=== PATIENT | male | born 1945 | race Caucasian/White ===

== ENCOUNTER 2016-12-03 11:49 | Emergency (ER) | payer MEDICARE, BC ==
[2016-12-03] MEDS ORDERED: Sodium Chloride 0.9% 10 ML Syringe FLUSH PRN (12:02)
[2016-12-03] MEDS ORDERED: Sodium Chloride 0.9% 1,000 ML IV SCH ×2 (12:15→15:00)
--- NOTE | 2016-12-03 12:37 | EDM.PDOC ---
ED HPI GENERAL MEDICAL PROBLEM - General Chief Complaint: General Stated Complaint: LIGHT HEADED Time Seen by Provider: 12/03/16 12:00 Source of Information: Reports: Patient, Family History Limitations: Reports: No Limitations - History of Present Illness INITIAL COMMENTS - FREE TEXT/NARRATIVE: c/o lighthead, dizzy, near syncope at pt had a roll and green tea for bfast, which is usual for him, went to a of a friend, in the yazidism he felt lightheaded and dizzy, felt like he would pass out, a friend helped him outside to get fresh air, felt better sitting down, brought by EMS to ED dtr here and provided hx that he had fell 2x in past month, once he leaned forward to put on his underwear and fell forward and hit his head on the floor denies CV or pul hx in past has afib on EKG, orthostatic with HR 105 supine to 120 standing with no change in BP no n/v, no cp, no sob, no f/c/d - Related Data Allergies Allergy/AdvReac Type Severity Reaction Status Date / Time No Known Allergies Allergy Verified 12/05/13 15:32 Home Meds: Home Meds Tadalafil [Cialis] 20 mg PO ASDIRECTED 12/05/13 [History] Valsartan/Hydrochlorothiazide [Valsartan-Hctz 160-12.5 mg Tab] 1.5 tab PO DAILY 12/05/13 [History] Social & Family History - Tobacco Use Smoking Status *Q: Never Smoker Second Hand Smoke Exposure: No - Caffeine Use Caffeine Use: Reports: Tea - Alcohol Use Days Per Week of Alcohol Use: 0 - Recreational Drug Use Recreational Drug Use: No ED ROS GENERAL - Review of Systems Review Of Systems: See Below Constitutional: Reports: No Symptoms HEENT: Reports: No Symptoms Respiratory: Reports: No Symptoms Cardiovascular: Reports: No Symptoms Endocrine: Reports: No Symptoms GI/Abdominal: Reports: No Symptoms : Reports: No Symptoms Musculoskeletal: Reports: No Symptoms Skin: Reports: No Symptoms Neurological: Reports: No Symptoms Psychiatric: Reports: No Symptoms Hematologic/Lymphatic: Reports: No Symptoms Immunologic: Reports: No Symptoms ED EXAM, GENERAL - Physical Exam Exam: See Below Exam Limited By: No Limitations General Appearance: Alert, WD/WN, No Apparent Distress Ears: Normal External Exam Nose: Normal Inspection, Normal Mucosa, No Blood Throat/Mouth: Normal Inspection, Normal Lips, Normal Teeth, Normal Gums, Normal Oropharynx, Normal Voice, No Airway Compromise Head: Atraumatic, Normocephalic Neck: Normal Inspection, Supple, Non-Tender, Full Range of Motion. No: Carotid Bruit, Lymphadenopathy (R) Respiratory/Chest: No Respiratory Distress, Lungs Clear, Normal Breath Sounds, No Accessory Muscle Use, Chest Non-Tender Cardiovascular: No Edema, No JVD, No Rub, Other (slight irregular, 2/6 ARIS at LSB, precordium quiet) GI/Abdominal: Normal Bowel Sounds, Soft, Non-Tender, No Organomegaly, No Distention, No Mass Back Exam: Normal Inspection, Full Range of Motion, NT Extremities: Normal Inspection, Normal Range of Motion, Non-Tender, Normal Capillary Refill, No Pedal Edema Neurological: Alert, Oriented, CN II-XII Intact, Normal Cognition, No Motor/ Sensory Deficits Psychiatric: Normal Affect, Normal Mood Skin Exam: Warm, Dry, Intact, Normal Color, No Rash Lymphatic: No Adenopathy Course - Vital Signs Last Recorded V/S: Last Vital Signs Temp 36.7 C 12/03/16 11:57 Pulse 96 12/03/16 12:56 Resp 16 12/03/16 12:56 BP 98/71 12/03/16 12:56 Pulse Ox 98 12/03/16 12:56 - Orders/Labs/Meds Orders: Active Orders 24 hr Category Date Time Status Orthostatic Vital Signs [RC] ASDIRECTED Care 12/03/16 12:00 Active Chest 2V [CR] Stat Exams 12/03/16 12:03 Taken TROPONIN I [CHEM] Stat Lab 12/03/16 12:50 Received TSH ULTRASENSITIVE [CHEM] Stat Lab 12/03/16 12:50 Received URINALYSIS W/MICROSCOPIC [UA W/MICROSCOPIC] [URIN] Stat Lab 12/03/16 12:02 Uncollected Sodium Chloride 0.9% [Normal Saline] 1,000 ml Med 12/03/16 12:15 Active IV ASDIRECTED Sodium Chloride 0.9% [Saline Flush] Med 12/03/16 12:02 Active 10 ml FLUSH ASDIRECTED PRN Saline Lock Insert [OM.PC] Routine Oth 12/03/16 12:02 Ordered EKG 12 Lead [EK] Routine Ther 12/03/16 12:01 Ordered Medication Orders Sodium Chloride (Normal Saline) 1,000 mls @ 999 mls/hr IV ASDIRECTED HAYDEE Last Admin: 12/03/16 12:43 Dose: 999 mls/hr Sodium Chloride (Saline Flush) 10 ml FLUSH ASDIRECTED PRN PRN Reason: Keep Vein Open Labs: Laboratory Tests 12/03/16 12/03/16 12/03/16 Range/Units 12:50 12:50 12:50 WBC 5.5 (4.5-12.0) X10-3/uL RBC 3.84 L (4.30-5.75) x10(6)uL Hgb 14.6 (11.5-15.5) g/dL Hct 43.3 (30.0-51.3) % MCV 112.7 H (80-96) fL MCH 37.9 H (27.7-33.6) pg MCHC 33.7 (32.2-35.4) g/dL RDW 16.9 H (11.5-15.5) % Plt Count 156 (125-369) X10(3)uL MPV 8.5 (7.4-10.4) fL Neut % (Auto) 71.9 (46-82) % Lymph % (Auto) 20.3 (13-37) % [place] % (Auto) 5.6 (4-12) % Eos % (Auto) 2 (1.0-5.0) % Baso % (Auto) 0 (0-2) % Neut # (Auto) 4.0 (1.6-8.3) # Lymph # (Auto) 1.1 (0.6-5.0) # [place] # (Auto) 0.3 (0.0-1.3) # Eos # (Auto) 0.1 (0.0-0.8) # Baso # (Auto) 0.0 (0.0-0.2) # Sodium 139 (135-145) mmol/L Potassium 3.6 (3.5-5.3) mmol/L Chloride 105 (100-110) mmol/L Carbon Dioxide 26 (23-29) mmol/L BUN 25 H (8-23) mg/dL Creatinine 1.2 (0.6-1.3) mg/dL Est Cr Clr Drug Dosing 2.11 mL/min Estimated GFR (MDRD) 59 L (>60) BUN/Creatinine Ratio 20.8 H (9-20) Glucose 126 H (80-116) mg/dL Calcium 8.9 (8.6-10.2) mg/dL Total Bilirubin 1.8 H (0.1-1.3) mg/dL AST 28 H (5-27) IU/L ALT 21 (14-26) IU/L Alkaline Phosphatase 61 (56-112) IU/L C-Reactive Protein < 0.5 (0.0-1.0) mg/dL B-Natriuretic Peptide 275 H (0-100) pg/mL Total Protein 6.8 (6.0-8.0) g/dL Albumin 4.2 (3.2-4.6) g/dL Globulin 2.6 g/dL Albumin/Globulin Ratio 1.6 Meds: Medications Generic Name Dose Route Start Last Admin Trade Name Freq PRN Reason Stop Dose Admin Sodium Chloride 1,000 mls @ 999 mls/hr 12/03/16 12:15 12/03/16 12:43 Normal Saline IV 999 mls/hr ASDIRECTED HAYDEE Administration Sodium Chloride 10 ml 12/03/16 12:02 Saline Flush FLUSH ASDIRECTED PRN Keep Vein Open - Re-Assessments/Exams Free Text/Narrative Re-Assessment/Exam: 12/03/16 14:13 now here, labs reviewed with pt and , they agree to admission troponin not back which is a send out, pt will need cardiac evaluation, only caffeine is one cup green tea for bfast and one soda for lunch, no alcohol, has MCV 112.7 for unknown reason 12/03/16 14:23 d/w Teri BERNAL at hospital, message left on phone for hospitalist Dr Castro and Teri texted him as well, will admit to observation bed and discuss further with Gloria when he calls back Departure - Departure Time of Disposition: 14:14 Disposition: Admitted As Inpatient 64 Condition: Good Clinical Impression: Near syncope, Dehydration, Premature ventricular beats, Macrocytosis without anemia, Orthostasis, Hyperbilirubinemia, Elevated LFTs, Elevated BUN, Acute renal insufficiency, Elevated brain natriuretic peptide (BNP) level, Left anterior fascicular hemiblock - Discharge Information Referrals: Andreas Drake PA-C [Primary Care Provider] - Forms: ED Department Discharge - My Orders Last 24 Hours: My Active Orders 12/03/16 12:00 Orthostatic Vital Signs [RC] ASDIRECTED 12/03/16 12:01 EKG 12 Lead [EK] Routine 12/03/16 12:02 URINALYSIS W/MICROSCOPIC [UA W/MICROSCOPIC] [URIN] Stat Sodium Chloride 0.9% [Saline Flush] 10 ml FLUSH ASDIRECTED PRN Saline Lock Insert [OM.PC] Routine 12/03/16 12:03 Chest 2V [CR] Stat 12/03/16 12:15 Sodium Chloride 0.9% [Normal Saline] 1,000 ml IV ASDIRECTED 12/03/16 12:50 TROPONIN I [CHEM] Stat TSH ULTRASENSITIVE [CHEM] Stat - Assessment/Plan Last 24 Hours: My Active Orders 12/03/16 12:00 Orthostatic Vital Signs [RC] ASDIRECTED 12/03/16 12:01 EKG 12 Lead [EK] Routine 12/03/16 12:02 URINALYSIS W/MICROSCOPIC [UA W/MICROSCOPIC] [URIN] Stat Sodium Chloride 0.9% [Saline Flush] 10 ml FLUSH ASDIRECTED PRN Saline Lock Insert [OM.PC] Routine 12/03/16 12:03 Chest 2V [CR] Stat 12/03/16 12:15 Sodium Chloride 0.9% [Normal Saline] 1,000 ml IV ASDIRECTED 12/03/16 12:50 TROPONIN I [CHEM] Stat TSH ULTRASENSITIVE [CHEM] Stat
[2016-12-03] MEDS ORDERED: Aspirin 81 MG Tab.Chew PO ONE (14:49)
[2016-12-03 16:59] VITALS: BP 124/81
--- NOTE | 2016-12-08 14:59 | CR ---
INDICATION: Near syncope. 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 There is no infiltrates, effusions, or masses identified at this time. Some hyperinflation consistent with COPD. Degenerative changes throughout the thoracic spine. The heart is normal in size. However, there could be some prominence of the aortic root, although this may just be aortic ectasia. IMPRESSION: 1. COPD. 2. Aortic ectasia. 3. Cannot rule out some aortic root dilatation. If indicated clinically, a CT examination could be obtained for further evaluation of this area. No other significant findings. MTDD
== END 2016-12-03 17:15 ==
LOC: FB.ED 11:49
DX: R55 Syncope and collapse (principal); E86.0 Dehydration; I44.4 Left anterior fascicular block; D75.89 Other specified diseases of blood and blood-forming organs; E80.6 Other disorders of bilirubin metabolism; R79.89 Other specified abnormal findings of blood chemistry; N28.9 Disorder of kidney and ureter, unspecified; Z79.899 Other long term (current) drug therapy
CPT/HCPCS: 36415; 71020; 80053; 81001; 83880; 84443; 84484; 85025; 86140; 93005; 96365; 96366; 99284; 99285; A9270; J7040

== ENCOUNTER 2017-09-29 22:53 | Emergency (ER) | payer MEDICARE, BC ==
[2017-09-29] MEDS ORDERED: Sodium Chloride 0.9% 1,000 ML IV ONE (23:13)
[2017-09-29] MEDS ORDERED: Metoprolol Tartrate 5 MG/5 ML SDV IVPUSH ONE (23:56)
[2017-09-30] MEDS ORDERED: Carvedilol 3.125 MG Tab PO ONE (01:14)
[2017-09-30 01:52] VITALS: BP 126/73
--- NOTE | 2017-09-30 10:24 | ER ---
DATE SEEN: 09/29/2017 HISTORY OF PRESENT ILLNESS: This is a 72-year-old , nonsmoking ortega, who spent today putting a crop and did not take enough amount of fluids, was brought in by [facility] because he felt lightheaded and did not feel right. He had 91/57 blood pressure, heart rate has varied between 160 and 190s. Recently, he has been started on prednisone to decrease the problem with his red blood cells. He is now on a taper of this (wonder if he had aplastic anemia or myeloplastic anemia, but no evidence of that on the current laboratory tests). He has had fast heart rate before, approximately a year and half ago. On 12/01/2016 he was transferred to [facility] because he had an episode of lightheadedness, BNP of 275, mild liver enzyme elevation, and stage 1 chronic kidney disease associated with macrocytosis and elevated bilirubin. Etiology of that he had an echo performed at [facility] (not sure which hospital). He had also acute anterior hemiblock. To-date, he has been on prednisone 5 mg daily and 10 mg lisinopril. He has been apparently tapering off his prednisone because at one time his hemoglobin was low but it has slowly come up. The patient denies chest pain, irregular heartbeat/diaphoresis, but he has experienced this lightheadedness. Denies abdominal pain, near syncope or syncope, or weakness in upper and lower extremities. Denies fever, cough, shortness of breath, dyspnea on exertion. His weight is 215 pounds. He has mild pedal edema. On 12/03/2016, he had a chest x-ray done and it was read as possible mild aortic root dilation, COPD, and degenerative thoracic spine disease. REVIEW OF SYSTEMS: Otherwise negative currently except for noted above. 12- point review of systems performed. MEDICATIONS: As noted above. ALLERGIES: None. SOCIAL HISTORY: Nonsmoker. Does not drink alcohol. 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 PHYSICAL EXAMINATION: VITAL SIGNS: Blood pressure 135/99, heart rate 77, mean blood pressure 111, respiratory rate 18, oxygen saturation 99. Nurses caught on the EKG heart rate of 163 with wide-complex tachycardia noted with PVCs. P- waves noted thought to be PSVT. Repeat EKG at approximately 32 minutes later demonstrated occasional PVC with sinus tachycardia. Heart rate 83, that was after he received 5 mg of metoprolol IV. The patient felt less lightheaded. He did not have any chest pain. No diaphoresis. GENERAL: Alert man, slightly decreased hearing. Wears glasses. HEENT: Pharynx without abnormality, but slightly dry mucosa. NECK: No cervical adenopathy, thyromegaly, or masses in the neck and no bruits. HEART: S1, S2. It is regular. Occasional irregular beat (PVCs). Initially, he had a PSVT with heart rate in the 160s, they have come down to 145 spontaneously. LUNGS: Clear to auscultation. There were no rales. HEART: S1, S2. Sinus tachycardia with regular rhythm (PSVT also). ABDOMEN: Soft. No guarding. No abdominal discomfort. No hepatosplenomegaly. EXTREMITIES: Lower extremities, 1+ pedal edema bilateral lower extremities. Dorsalis pedis intact. Capillary refill less than 1 second. No significant percussion tenderness. Deep tendon reflexes in upper and lower extremities symmetrical, absent. Cranial nerves II through XII intact. No pronator drift. No weakness in upper or lower extremity. EMERGENCY ROOM COURSE: The patient received a dose of metoprolol, it brought the heart rate down, it came down to 80s. He was then given later a dose of 3.125 mg Coreg (carvedilol) p.o. [place] [address] and there is no evidence of ST- elevation. There is some "probable left atrial enlargement" with P-wave greater than 50 milliseconds, less than 0.1 mV in V1. LABORATORY FINDINGS: He has an elevated BNP, 1644. Troponin was 0.018, not elevated. Electrolytes normal with a BUN of 21, creatinine 1.3, GFR 54 (chronic kidney disease stage 1). Mild elevation of glucose 129. White count 8900, PMNs not performed. Hemoglobin 15.2, and no macrocytosis (had a macrocytosis back on December 03, 2016). ASSESSMENT: Paroxysmal supraventricular tachycardia, resolved with metoprolol 5 mg IV. He needs further beta blockers and UP TO DAHLIA LITERATURE SOURSCE SUGGESTS USING BETABLOCKER or calcium channel blockers. I did give him a dose of carvedilol which has alpha belia and also beta belia effect, which none of the other beta blockers have. Late I realized this was not part of the suggested protocol for paroxysmal supraventricular tachycardia. The patient dismissed and to start with metoprolol 25 mg b.i.d tomorrow. He is going to have this [facility]. 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 If stable, continue medicine and consider further farm work. If not stable, then consider echocardiology consultation. His BNP needs to be repeated, I was surprised this was elevated today. This may reflect his ongoing cardiovascular insufficiency and changes of his heart. Perhaps a repeat echo,the la ecjho was performed in 2017 needs to be done to validate either progression of his heart disease. Also, the concern is the ectatic aorta. There was some concern about potential aneurysm that needs to be re-evaluated. He did not have a chest pain tonight to suggest myocardial ischemia on the basis of symptoms or the EKG. The patient was seen on arrival. /[id number] SAMMI/LOUIS ALFARO
--- NOTE | 2017-10-01 08:50 | CR ---
INDICATION: Near syncope. CHEST: Two portable AP upright views of the chest 09/29/2017 were compared with 12/03/2016 and 01/22/2010. The heart did not appear grossly enlarged and may be entirely within normal limits in size. The aorta is somewhat tortuous. A definite active infiltrate or effusion was not identified. IMPRESSION: No acute process. MTDD
== END 2017-09-30 02:00 | disposition home or self-care (01) ==
LOC: FB.ED 22:53
DX: I47.1 Supraventricular tachycardia (principal); N18.1 Chronic kidney disease, stage 1; D75.89 Other specified diseases of blood and blood-forming organs
CPT/HCPCS: 36415; 71045; 80053; 83880; 84484; 85025; 85379; 93005; 96361; 96374; 99285; A9270-GY; J3490; J7040

== ENCOUNTER 2017-11-04 08:45 | Day surgery (SDC) | payer MEDICARE, BC ==
[~2017-11-04 08:45] MED LIST: Lactated Ringers 1,000 ML IV SCH
--- NOTE | 2017-11-04 10:19 | PREOP ---
ADMISSION DATE: 11/04/2017 CHIEF COMPLAINT: Colon cancer screening. HISTORY OF PRESENT ILLNESS: This 72-year-old white male is referred for screening C-scope. Last exam was 15 years ago, which was without complaints. He has a negative family history. MEDICATIONS: Include lisinopril 10 mg once per day. ALLERGIES: He has no known drug allergies. PAST MEDICAL HISTORY: Significant for paroxysmal atrial fibrillation, orthostatic hypotension, and essential hypertension. PAST SURGICAL HISTORY: He has had bilateral shoulder surgeries in the past. FAMILY HISTORY: Significant for heart disease and atrial fibrillation. SOCIAL HISTORY: He is . He smokes and does not drink. REVIEW OF SYSTEMS: HEENT, eyes, respiratory, cardiovascular, and gastrointestinal are all negative. PHYSICAL EXAMINATION: GENERAL: This is a well-developed and well-nourished white male, appearing in no acute distress. VITAL SIGNS: His vital signs are reviewed. He is stable and afebrile. LUNGS: Clear to auscultation. HEART: Regular rate and rhythm. ABDOMEN: Soft and nontender. ASSESSMENT: Need for screening C-scope. PLAN: C-scope. Procedure and risks explained to the patient to include bleeding, perforation, and infection. The patient expresses understanding, and he asked us to proceed. /[id number] /MODL
[2017-11-04] MEDS ORDERED: Propofol 200 MG/20 ML SDV IV ONE (10:45)
[2017-11-04] MEDS ORDERED: Lidocaine 2% 100 MG/5 ML Syringe IVPUSH ONE (10:45)
--- NOTE | 2017-11-04 11:15 | PCM.OPNOTE ---
- General Post-Op/Procedure Note Date of Surgery/Procedure: 11/04/17 Operative Procedure(s): c scope with bx Findings: two small transverse colon polyps Pre Op Diagnosis: screening Post-Op Diagnosis: two small transverse colon polyps Anesthesia Technique: MAC Primary Surgeon: Lonnie Barr Anesthesia Provider: Simon Beck Pathology: two small transverse colon polyps Complications: None Condition: Good Free Text/Narrative:: see dictation
--- NOTE | 2017-11-04 12:11 | OR ---
DATE OF OPERATION: 11/04/2017 SURGEON: Lonnie Barr MD PROCEDURES PERFORMED: Colonoscopy with cold forceps biopsy. PREOPERATIVE DIAGNOSIS: Need for screening C-scope. POSTOPERATIVE DIAGNOSIS: Two small polyps of the transverse colon. INDICATIONS FOR PROCEDURE: This is a 72-year-old white male who presents for colonoscopy. Last one was performed 15 years ago. He was offered and accepted same. DESCRIPTION OF PROCEDURE: After an excellent IV sedation was administered, digital rectal exam was performed. No marked abnormality was noted. The flexible colonoscope was inserted and advanced to the cecum without difficulty. The prep was acceptable. There were some areas of particulate stool, which did affect specimen collection, but we were able to aspirate and get a good view of the mucosa. The following findings were noted. Ascending colon, unremarkable. Transverse colon, at the hepatic flexure and mid-transverse colon, there were 2 small polyps noted. These were biopsied with the cold loop snare and were retrieved. The first one was retrieved easily. With the second one, there was some difficulty and it appeared to be in the specimen container. These were very small, averaging approximately 3 mm in size. The descending colon was unremarkable. The transverse colon was unremarkable. The sigmoid and rectum were unremarkable. The colon was deflated. The scope was removed. Results by letter. /[id number] /CHASL
[2017-11-04 12:17] VITALS: BP 145/89
== END 2017-11-04 12:10 | disposition home or self-care (01) ==
LOC: FB.SDS 08:45
PROVIDERS: ATTEND Surgery
PROC: 0DBL8ZX Excision of Transverse Colon, Via Natural or Artificial Opening Endoscopic, Diagnostic (ICD-10-PCS; principal; 2017-11-04)
DX: Z12.11 Encounter for screening for malignant neoplasm of colon (principal); K63.5 Polyp of colon; I48.0 Paroxysmal atrial fibrillation; I10 Essential (primary) hypertension; Z79.899 Other long term (current) drug therapy; F17.200 Nicotine dependence, unspecified, uncomplicated
CPT/HCPCS: 00812; 45384; 88305; J2704; J7120